=== PATIENT | female | born 1950 | race Caucasian/White ===

== ENCOUNTER → 2017-02-10 | Outpatient (CLI) | payer OTHER | LOC: BRMIMAGING 14:54 | PROVIDERS: ATTEND Internal Medicine Rheumatology | DX: M81.0 Age-related osteoporosis without current pathological fracture (principal); Z78.0 Asymptomatic menopausal state ==

== ENCOUNTER → 2017-02-25 | Outpatient (CLI) | payer OTHER | LOC: CIMAGING 11:12 | PROVIDERS: ATTEND Internal Medicine | DX: Z12.11 Encounter for screening for malignant neoplasm of colon (principal); K57.90 Diverticulosis of intestine, part unspecified, without perforation or abscess without bleeding; M51.36 Other intervertebral disc degeneration, lumbar region | CPT/HCPCS: 74263-PO ==

== ENCOUNTER → 2017-03-25 | Outpatient (CLI) | payer OTHER | LOC: CIMAGING 08:53 | PROVIDERS: ATTEND Internal Medicine | DX: R14.0 Abdominal distension (gaseous) (principal); K76.0 Fatty (change of) liver, not elsewhere classified | CPT/HCPCS: 76700-PO ==

== ENCOUNTER → 2017-05-18 | Outpatient (CLI) | payer OTHER | LOC: CIMAGING 12:03 | PROVIDERS: ATTEND Internal Medicine | DX: Z12.31 Encounter for screening mammogram for malignant neoplasm of breast (principal) | CPT/HCPCS: G0202 ==

== ENCOUNTER → 2017-11-03 | Outpatient (CLI) | payer OTHER | LOC: CIMAGING 16:03 | PROVIDERS: ATTEND Internal Medicine | DX: M25.571 Pain in right ankle and joints of right foot (principal); M79.661 Pain in right lower leg; R60.0 Localized edema | CPT/HCPCS: 73600-PO; 93971-PO ==

== ENCOUNTER → 2017-11-12 | Outpatient (CLI) | payer OTHER | LOC: FIMAGING 15:18 | PROVIDERS: ATTEND Internal Medicine | DX: M51.86 Other intervertebral disc disorders, lumbar region (principal); M53.86 Other specified dorsopathies, lumbar region; M43.16 Spondylolisthesis, lumbar region; M48.061 Spinal stenosis, lumbar region without neurogenic claudication ==

== ENCOUNTER 2017-12-07 16:13 | Emergency (ER) | payer OTHER ==
--- NOTE | 2017-12-07 17:36 | EDPHY ---
H & P Time Seen by Provider: 12/07/17 16:37 HPI/ROS: HPI Constipation. 67-year-old female comes from the office of her primary care physician Dr. House upstairs. This patient was admitted for a small bowel obstruction/ileus to [facility] just a few days ago and then left the hospital against medical advice on December 02. She was told on discharge to follow up with her primary care physician Dr. House in 2 days. That is why she saw him today. She does complain of continued crampy mid and lower abdominal discomfort and reports she has not had a significant bowel movement in over 2 weeks. She has been using products such as MiraLax as well as magnesium citrate and has had some watery diarrheal like stools but no significant movement. CT scan during her admission to [facility] showed small-bowel obstruction with fecalization of the terminal ileum. Diverticulosis was noted but no diverticulitis. She was seen at the emergency department for the same complaint of abdominal distention and cramping yesterday at [facility]. She had another CT scan done of her abdomen and pelvis dated yesterday December 06. This showed moderate amount of stool throughout the colon particularly the right side no evidence of bowel obstruction. The appendix was well visualized and was normal. She had a small umbilical hernia containing fat only. Diverticulosis noted but no diverticulitis. Prior to coming down to the emergency department she had an upright abdominal x-ray series: This showed interval improvement but worse constipation. She has not been vomiting. Dr. House requested that she be seen in the emergency department and given enemas to help induce a bowel movement. Dr. House performed a rectal exam. She is not impacted. I spoke to him personally regarding this patient. ROS: Constitutional: No fever, no chills. No weakness. Eyes: No discharge. No changes in vision. ENT: No sore throat. No nasal congestion or rhinorrhea. Respiratory: No cough. No shortness of breath. Cardiac: No chest pain, no palpitations. Gastrointestinal: As above, no vomiting, no diarrhea. Genitourinary: No hematuria. No dysuria or increased frequency with urination. Musculoskeletal: No back pain. No neck pain. No myalgias or arthralgias. Skin: No rashes. Neurological: No headache. No focal weakness or altered sensation. Past medical history: Asthma, hypertension, fibromyalgia, chronic pain, hyperlipidemia, hypothyroidism, bipolar. Social history: Lives in [place]. Smoker. No alcohol. Physical Exam: General Appearance: Alert, pleasant, in no apparent distress. This patient is responding to questions appropriately and in full sentences. This patient appears well-hydrated and well-nourished. Eyes: Pupils equal and round no pallor or injection. No lid edema, erythema or injection. Respiratory: There are no retractions, lungs are clear to auscultation with good air movement bilaterally. Cardiovascular: Regular rate and rhythm. No murmur. Gastrointestinal: Obese habitus. Abdomen is soft with vague tenderness on palpation involving the mid and lower abdomen, no masses, bowel sounds normal. No focal tenderness at McBurney's point. No Corley sign. Neurological: Motor sensory function is grossly intact. Cranial nerves are normal. Gait is normal. Skin: Warm and dry, no rashes. Musculoskeletal: Neck is supple and nontender. Extremities are symmetrical. All joints range without pain or impingement. Psychiatric: No agitation. No depression. Database: EKG: Imaging: Abdominal x-ray series obtained today by her primary care physician reviewed by myself. CT imaging as noted above under HPI reviewed by myself. Procedures: Emergency department course: Vital signs reviewed. She is moderately hypertensive. Vital signs otherwise normal. Discussed soapsuds enema with the patient. She consents. 6:00 p.m., the patient is currently on her 2nd soapsuds enema. She has had a hard time retaining the enema the. 6:45 p.m., the patient has produced a moderate bowel movement and is feeling better. She does not want another enema in the emergency department. I discussed treating her constipation with GoLYTELY. She is in agreement with this. I will prescribe a GoLYTELY 1/2 prep. Repeat abdominal exam she is soft , nontender and nondistended. She has been instructed on how to take this medication and to follow up with her primary care physician Dr. House tomorrow. Return to emergency department precautions were reviewed thoroughly with her. All of her questions were answered. She was discharged in condition. Differential Diagnosis: The differential diagnosis on this patient includes but is not limited to constipation. Bowel obstruction, acute surgical process unlikely. This represents a partial list of diagnoses considered. These considerations are based on history, physical exam, past history, reassessment and diagnostic testing. Smoking Status: Light smoker Constitutional: Initial Vital Signs Temperature (C) 36.6 C 12/07/17 16:20 Heart Rate 73 12/07/17 16:20 Respiratory Rate 16 12/07/17 16:20 Blood Pressure 157/92 H 12/07/17 16:20 O2 Sat (%) 93 12/07/17 16:20 O2 Delivery Mode Room Air Allergies/Adverse Reactions: No Known Allergies Allergy (Verified 12/07/17 16:20) Home Medications: Medication Instructions Recorded Albuterol [Proventil Inhaler (RX)] 2 puffs IH Q4 PRN 11/01/12 Baclofen [Baclofen 10 mg (RX)] 5 mg PO TID 11/01/12 LORazepam [Ativan 1 mg (RX)] 1 mg PO BID 11/01/12 Levothyroxine [Synthroid 50 mcg 50 mcg PO DAILY06 11/01/12 (RX)] Tramadol HCl 100 mg PO TID 11/01/12 lamoTRIgine [Lamotrigine] 300 mg PO DAILY 11/01/12 risperiDONE [Risperdal 1mg (RX)] 2 mg PO HS 11/01/12 Lisinopril [Zestril 5 mg (RX)] 5 mg PO DAILY 11/15/13 Alendronate Sodium [Fosamax 70 MG 70 mg PO WE@0700 11/28/17 (*)] Aspirin EC [Aspirin EC 81 mg (*)] 81 mg PO DAILY 11/28/17 Atorvastatin Calcium [Lipitor 20 20 mg PO DAILY 11/28/17 mg (*)] Benztropine Mesylate 0.5 mg PO DAILY 11/28/17 Colchicine [Colchicine (*)] 0.6 mg PO BID 11/28/17 Esomeprazole Magnesium [Nexium 20 mg PO DAILY 11/28/17 24Hr] Gabapentin [Neurontin 300 MG (*)] 300 mg PO TID 11/28/17 Oxcarbazepine [Trileptal] 150 mg PO HS 11/28/17 Zolpidem Tartrate [Ambien 5MG (*)] 5 mg PO HS 11/28/17 amLODIPine BESYLATE [Norvasc 5 mg 5 mg PO DAILY@15 11/28/17 (*)] Peg 3350/Na Sulf,Bicarb,Cl/KCl 2,000 ml PO ONCE #1 btl 12/07/17 [Golytely (RX)] Departure - Departure Disposition: Home, Routine, Self-Care Clinical Impression: Constipation Condition: Good Instructions: Constipation (ED), High Fiber Diet (ED) Additional Instructions: Read and follow provided instructions. Follow-up with your primary care physician, Dr. House, within the next 1-2 days for re-evaluation. Take medication as prescribed for constipation. Return to the emergency department for worsening symptoms, worsening abdominal pain, vomiting, blood in your stool or other serious concerns. Referrals: Tu House MD [Primary Care Provider] - As per Instructions Prescriptions: Peg 3350/Na Sulf,Bicarb,Cl/KCl [Golytely (RX)] 2,000 ml PO ONCE #1 btl
[2017-12-07 19:12] VITALS: BP 160/88
== END 2017-12-07 19:09 | disposition home or self-care (01) ==
LOC: CED 16:13
DX: K59.00 Constipation, unspecified (principal); I10 Essential (primary) hypertension; J45.909 Unspecified asthma, uncomplicated; F17.200 Nicotine dependence, unspecified, uncomplicated; Z79.82 Long term (current) use of aspirin

== ENCOUNTER → 2017-12-07 | Outpatient (CLI) | payer OTHER | LOC: CIMAGING 15:17 | PROVIDERS: ATTEND Internal Medicine | DX: K56.609 Unspecified intestinal obstruction, unspecified as to partial versus complete obstruction (principal); K59.00 Constipation, unspecified | CPT/HCPCS: 74022-PO ==

== ENCOUNTER → 2017-12-14 | Outpatient (CLI) | payer OTHER | LOC: CIMAGING 14:43 | PROVIDERS: ATTEND Internal Medicine | DX: R41.0 Disorientation, unspecified (principal); R27.0 Ataxia, unspecified | CPT/HCPCS: 70450-PO ==

== ENCOUNTER → 2018-09-22 | Outpatient (CLI) | payer OTHER | LOC: CIMAGING 11:01 | PROVIDERS: ATTEND Internal Medicine | DX: Z12.31 Encounter for screening mammogram for malignant neoplasm of breast (principal) ==

== ENCOUNTER → 2018-11-30 | Outpatient (CLI) | payer OTHER | LOC: CIMAGING 16:28 | PROVIDERS: ATTEND Internal Medicine | DX: M54.6 Pain in thoracic spine (principal) | CPT/HCPCS: 71046-PO ==

== ENCOUNTER → 2018-12-14 | Outpatient (CLI) | payer OTHER | LOC: CLAB 11:28 | PROVIDERS: ATTEND Internal Medicine | DX: R14.0 Abdominal distension (gaseous) (principal); K59.00 Constipation, unspecified | CPT/HCPCS: 74019-PO ==